=== PATIENT | female | born 1995 | race Caucasian/White ===

== ENCOUNTER 2017-04-07 18:33 | Emergency (ER) | payer BC ==
[2017-04-07 22:45] VITALS: BP 108/75
== END 2017-04-07 22:45 | disposition home or self-care (01) ==
LOC: ED 18:33
DX: G44.209 Tension-type headache, unspecified, not intractable (principal)

== ENCOUNTER 2017-04-09 18:45 | Emergency (ER) | payer BC ==
[~2017-04-09] VITALS: Ht 157.5 cm; Wt 85.7 kg
[2017-04-09 20:14] LABS: BASOPHIL % 0.4 % (0-2); PLATELET COUNT 363 x10^3mcL (130-400)
[2017-04-09 20:18] LABS: RED CELL DISTRIBUTION WIDTH 11.3 % (11.5-14.5)
[2017-04-09 20:29] LABS: CALCIUM 9.2 mg/dL (8.5-10.1); CARBON DIOXIDE 28.4 mmol/L (21-32); CHLORIDE SERUM 103 mmol/L (98-107); CREATININE SERUM 0.7 mg/dL (0.6-1.0); GFR1 > 60 mL/min; GLUCOSE SERUM 100 mg/dL (74-106); POTASSIUM SERUM 3.8 mmol/L (3.5-5.1); SODIUM SERUM 139 mmol/L (136-145)
[2017-04-09 20:36] LABS: ALBUMIN 4.1 g/dL (3.4-5.0); ALKALINE PHOSPHATASE 84 U/L (46-116); ALT/SGPT 72 U/L (14-59); AST/SGOT 34 U/L (15-37); BILIRUBIN TOTAL 0.9 mg/dL (0.20-1.00); TOTAL PROTEIN, SERUM 8.1 g/dL (6.4-8.2)
[2017-04-09 21:42] LABS: microscopic required? NO
[2017-04-09 21:53] LABS: urine erythrocyte NEGATIVE (NEGATIVE)
[2017-04-09 22:04] LABS: AMPHETAMINE QUAL UR NONE DETECTED (NEG <=1000)
[2017-04-09 22:19] VITALS: BP 118/73
== END 2017-04-09 22:19 | disposition home or self-care (01) ==
LOC: ED 18:45
PROVIDERS: Emergency Medicine
DX: R42 Dizziness and giddiness (principal)
CPT/HCPCS: G0480; J2405; J7030; J8597

== ENCOUNTER 2018-06-19 14:45 | Emergency (ER) | payer OTHER ==
[~2018-06-19] VITALS: Ht 157.5 cm; Wt 89.8 kg
[2018-06-19 14:49] VITALS: Ht 157.5 cm; Wt 89.8 kg
[2018-06-19 15:47] LABS: BASOPHIL % 0.7 % (0-2); PLATELET COUNT 329 x10^3mcL (130-400); RED CELL DISTRIBUTION WIDTH 11.9 % (11.5-14.5)
[2018-06-19 15:54] LABS: CARBON DIOXIDE 28.8 mmol/L (21-32); CHLORIDE SERUM 103 mmol/L (98-107); CREATININE SERUM 0.8 mg/dL (0.6-1.0); GFR1 > 60 mL/min; GLUCOSE SERUM 115 mg/dL (74-106); POTASSIUM SERUM 3.9 mmol/L (3.5-5.1); SODIUM SERUM 140 mmol/L (136-145)
[2018-06-19 16:11] VITALS: BP 128/71
== END 2018-06-19 16:11 | disposition home or self-care (01) ==
LOC: ED 14:45
PROVIDERS: Specialist
DX: G44.209 Tension-type headache, unspecified, not intractable (principal); R20.2 Paresthesia of skin
CPT/HCPCS: 36415